=== PATIENT | female | born 1960 | race Caucasian/White ===

== ENCOUNTER 2018-12-02 15:32 | Emergency (ER) | payer OTHER ==
[~2018-12-02] VITALS: Ht 157.5 cm; Wt 63.6 kg
[~2018-12-02 15:32] MED LIST: BUSP15TA3 PO; ESCI20TA38 PO; OLME40TA13 PO; PRAV40TA76 PO; TRAZ-150 PO
[2018-12-02 15:39] VITALS: Ht 157.5 cm; Wt 63.6 kg
[2018-12-02] MEDS ORDERED: ONDANSETRON 4 MG INJ IV STA (16:12)
[2018-12-02] MEDS ORDERED: SOD CHLORIDE 0.9% 1,000 ML IV STA (16:12)
--- NOTE | 2018-12-02 16:27 | ERD ---
ER Documentation Chief Complaint Chief Complaint N/V x1day, awake, a/ox4. HPI 58-year-old female presenting by ambulance for nausea and vomiting. Patient is refusing to speak so her daughter is speaking for her. Her daughter states that the patient has been in bed for the past 4 days, refusing to get up. She has been crying intermittently and complaining of left-sided chest pain. It is unclear why she did not come to the hospital sooner. Today daughter went to see the patient at her brother's house and noticed that she had vomited and did not even notice. For this reason, ambulance was called. Patient complains of left- sided chest pain that radiates to her back. She refuses to answer any other questions. ROS Limited as the patient is not answering all questions Medications Home Meds Reported Medications Olmesartan Medoxomil (Benicar) 40 Mg Tablet, 40 MG PO DAILY, #30 TAB 12/02/18 Escitalopram Oxalate* (Escitalopram Oxalate*) 20 Mg Tablet, 20 MG PO DAILY, #30 TAB 12/02/18 Buspirone Hcl* (Buspirone Hcl*) 15 Mg Tablet, 15 MG PO BID PRN for NEEDED, TAB 12/02/18 Pravastatin Sodium* (Pravastatin Sodium*) 40 Mg Tablet, 40 MG PO HS, TAB 12/02/18 Trazodone Hcl* (Desyrel*) 100 Mg Tab, 100 MG PO QHS PRN for NEEDED, #30 TAB 12/02/18 Allergies Allergies: Coded Allergies: No Known Allergy (Unverified , 12/02/18) PMhx/Soc Medical and Surgical Hx: pt denies Surgical Hx Hx Cardiac Disorders: Yes (Hypertension) Hx Miscellaneous Medical Probl: Yes (Psoriasis) Hx Alcohol Use: Yes Hx Substance Use: No FmHx Unable to obtain Physical Exam Vitals Vital Signs Date Temp Pulse Resp B/P (MAP) Pulse Ox O2 O2 Flow FiO2 Time Delivery Rate 12/02/18 97.1 68 20 155/86 99 Room Air 18:41 (109) 12/02/18 97.1 60 20 136/72 99 Room Air 16:15 (93) 12/02/18 97.1 90 20 136/72 15:39 (93) Physical Exam Const: Appears fatigued, no apparent distress Head: Atraumatic Eyes: Normal Conjunctiva ENT: Dry mucous membranes. normal External Ears, Nose and Mouth. Neck: Full range of motion. No meningismus. Resp: Clear to auscultation bilaterally Cardio: Regular rate and rhythm, no murmurs. 2+ distal pulses in all 4 extremities Abd: Soft, non tender, non distended. Normal bowel sounds Skin: No petechiae or rashes Back: No midline or flank tenderness Ext: No cyanosis, or edema Neur: Awake and alert, mumbling speech, no facial asymmetry, moving extremities spontaneously. Psych: Depressed, flat affect Result Diagram: 12/02/18 1623 12/02/18 1623 Results 24 hrs Laboratory Tests Test 12/02/18 16:15 12/02/18 16:23 12/02/18 16:40 12/02/18 16:56 Bedside Glucose 119 mg/dL White Blood Count 6.7 10^3/ul Red Blood Count 4.88 10^6/ul Hemoglobin 13.8 g/dl Hematocrit 43.0 % Mean Corpuscular 88.1 fl Volume Mean Corpuscular 28.3 pg Hemoglobin Mean Corpuscular 32.1 g/dl Hemoglobin Concent Red Cell 14.2 % Distribution Width Platelet Count 389 10^3/UL Mean Platelet 9.6 fl Volume Immature 0.400 % Granulocytes % Neutrophils % 59.7 % Lymphocytes % 28.8 % Monocytes % 6.1 % Eosinophils % 4.3 % Basophils % 0.7 % Nucleated Red Blood 0.0 /100WBC Cells % Immature 0.030 10^3/ul Granulocytes # Neutrophils # 4.0 10^3/ul Lymphocytes # 1.9 10^3/ul Monocytes # 0.4 10^3/ul Eosinophils # 0.3 10^3/ul Basophils # 0.1 10^3/ul Nucleated Red Blood 0.0 10^3/ul Cells # Sodium Level 146 mmol/L Potassium Level 4.2 mmol/L Chloride Level 107 mmol/L Carbon Dioxide 28 mmol/L Level Anion Gap 11 Blood Urea Nitrogen 15 mg/dl Creatinine 0.79 mg/dl Est Glomerular > 60 mL/min Filtrat Rate mL/min Glucose Level 119 mg/dl Calcium Level 9.6 mg/dl Total Bilirubin 0.4 mg/dl Direct Bilirubin 0.00 mg/dl Indirect Bilirubin 0.4 mg/dl Aspartate Amino 27 IU/L Transf (AST/SGOT) Alanine 31 IU/L Aminotransferase (A LT/SGPT) Alkaline 53 IU/L Phosphatase Troponin I < 0.012 ng/ml Total Protein 8.6 g/dl Albumin 4.9 g/dl Globulin 3.70 g/dl Albumin/Globulin 1.32 Ratio Salicylates Level < 1.0 mg/dl Acetaminophen Level < 10.0 ug/ml Ethyl Alcohol Level 184.0 mg/dl POC Venous Lactate 2.1 mmol/L Urine Color YELLOW Urine Clarity CLOUDY Urine pH 5.0 Urine Specific 1.020 Start Urine Ketones TRACE mg/dL Urine Nitrite NEGATIVE mg/dL Urine Bilirubin NEGATIVE mg/dL Urine Urobilinogen NEGATIVE mg/dL Urine Leukocyte 3+ Cristobal/ul Esterase Urine Microscopic 3 /HPF RBC Urine Microscopic 9 /HPF WBC Urine Squamous FEW /HPF Epithelial Cells Urine Bacteria FEW /HPF Urine Mucus FEW /HPF Urine Hemoglobin NEGATIVE mg/dL Urine Glucose NEGATIVE mg/dL Urine Total Protein NEGATIVE mg/dl Urine Opiates Negative Screen Urine Barbiturates Negative Urine Amphetamines Negative Screen Urine Negative Benzodiazepines Screen Urine Cocaine Negative Screen Urine Cannabinoids Negative Current Medications Medications Dose Sig/Nikole Start Time Status Last (Trade) Ordered Route PRN Stop Time Admin Dose Reason Admin Sodium 1,000 ml @ Q1H STAT 12/02/18 DC 12/02/18 Chloride 1,000 mls/hr IV 16:12 12/02/18 16:49 17:11 Ondansetron 4 mg ONCE STAT 12/02/18 DC 12/02/18 HCl (Zofran IV 16:12 12/02/18 16:49 Inj) 16:14 Procedures/MDM EMERGENT LABS AND DIAGNOSTIC STUDIES: Lab Results above were reviewed and interpreted by me. CBC: no anemia or evidence of infection CMP: No evidence of clinically significant electrolyte abnormality, acidosis, renal failure, hypoglycemia, liver disease, or biliary obstruction EtOH level significantly elevated, consistent with acute alcohol intoxication Troponin within normal limits, not indicative of cardiac ischemia Salicylate and Tylenol level within normal limits, no evidence of toxicity UA: Leukocytes noted, no symptoms of infection 12-lead EKG was interpreted by Rukhsana Zuleta MD: Normal Sinus Rhythm with ventricular rate of 60 beats per minute Normal axis Normal intervals Inferior and lateral T wave abnormality, concerning for possible ischemia No acute ST or T wave changes suggestive of acute ischemia or STEMI. Radiology Results as interpreted by Radiology below were reviewed by Regulo Zuleta MD: CT head shows no acute abnormalities Chest x-ray shows no acute abnormalities Initial Nursing notes reviewed. Previous Medical Records requested via the Electronic Health Record. EMERGENCY DEPARTMENT COURSE / MEDICAL DECISION MAKING: Patient was brought in and vomiting with generalized weakness and appeared very depressed on my exam. However she denied to me that she was suicidal or homicidal. Vitals were unremarkable. She had no focal deficits on examination. However given that she was acting somewhat strange, I did an altered mental st atus work-up. Her labs did show evidence of alcohol intoxication, which family had not reported at first. However they state that she does drink to sleep and sometimes cries while at home. I feel that the patient may be depressed and requires further evaluation for this. I do not feel she is an imminent danger to herself or others and is able to go home and follow-up with her primary care doctor. Daughter states that she will make an appointment for tomorrow. Patient was ambulating with a steady gait upon reevaluation. Labs and CT did not show any significant abnormalities otherwise. She is stable for discharge. Return precautions given. Patient's blood pressure was elevated (>120/80) but appears stable without evidence of hypertensive emergency or urgency. The patient was counseled about the risks of hypertension and urged to pursue outpatient monitoring and therapy within a week with their primary care physician. Departure Diagnosis: Primary Impression: Alcohol intoxication Complication of substance-induced condition: uncomplicated Qualified Codes: F10.920 - Alcohol use, unspecified with intoxication, uncomplicated Additional Impressions: Nausea and vomiting Vomiting type: unspecified Vomiting Intractability: unspecified Qualified Codes: R11.2 - Nausea with vomiting, unspecified Depressed Depression Type: unspecified Qualified Codes: F32.9 - Major depressive disorder, single episode, unspecified Condition: Stable EKMEKJIAN,NELLIE R. MD Dec 02, 2018 16:27
[2018-12-02 18:41] VITALS: BP 155/86; PULSE 68; RESP 20
== END 2018-12-02 18:44 | disposition home or self-care (01) ==
LOC: E/R 15:32
DX: R11.2 Nausea with vomiting, unspecified (principal); F10.920 Alcohol use, unspecified with intoxication, uncomplicated; F32.9 Major depressive disorder, single episode, unspecified; I10 Essential (primary) hypertension; R40.2142 Coma scale, eyes open, spontaneous, at arrival to emergency department; R40.2252 Coma scale, best verbal response, oriented, at arrival to emergency department; R40.2362 Coma scale, best motor response, obeys commands, at arrival to emergency department
CPT/HCPCS: 36415; 70450; 71045; 80053; 80307; 81001; 82962; 83605; 84484; 85025; 93005; 96374; J2405; J7030; Z7502